=== PATIENT | female | born 1985 | race Caucasian/White ===

== ENCOUNTER 2020-09-09 11:20 | Outpatient (CLI) | payer MEDICAID, SELFPAY ==
--- NOTE | 2020-09-09 11:47 | XRR_ITS ---
PROCEDURE INFORMATION: Exam: XR Lumbosacral Spine, 2 or 3 Views Exam date and time: 09/09/2020 12:05 PM Age: 34 years old Clinical indication: Low back pain TECHNIQUE: Imaging protocol: XR of the lumbosacral spine, 2 or 3 views. COMPARISON: No relevant prior studies available. FINDINGS: Bones/joints: Normal. No acute fracture. Normal alignment. Soft tissues: Metallic surgical clips right upper quadrant corresponding to cholecystectomy. XR/XR lumbar spine 2-3V* [id number] IMPRESSION: 1. No acute findings. 2. Status post cholecystectomy
== END 2020-09-09 11:21 | disposition home or self-care (01) ==
LOC: RAD 11:27
PROVIDERS: PCP Nurse Practitioner Family; Visit Provider Nurse Practitioner Family
DX: M54.5 Low back pain (principal); Z90.49 Acquired absence of other specified parts of digestive tract
CPT/HCPCS: 72100

== ENCOUNTER → 2020-10-18 15:24 | Outpatient (BNVA) | payer MEDICAID, SELFPAY | PROVIDERS: PCP Nurse Practitioner Family; Visit Provider Counselor Professional | DX: F43.23 Adjustment disorder with mixed anxiety and depressed mood (principal); Z63.4 Disappearance and death of family member | CPT/HCPCS: 90832 ==

== ENCOUNTER → 2020-11-01 15:11 | Outpatient (BNVA) | payer MEDICAID, SELFPAY | PROVIDERS: PCP Nurse Practitioner Family; Visit Provider Counselor Professional | DX: F43.23 Adjustment disorder with mixed anxiety and depressed mood (principal); Z63.4 Disappearance and death of family member | CPT/HCPCS: 90832 ==

== ENCOUNTER → 2020-11-15 16:04 | Outpatient (BNVA) | payer MEDICAID, SELFPAY | PROVIDERS: PCP Nurse Practitioner Family; Visit Provider Counselor Professional | DX: F43.23 Adjustment disorder with mixed anxiety and depressed mood (principal); Z63.4 Disappearance and death of family member | CPT/HCPCS: 90832 ==

== ENCOUNTER → 2020-12-03 16:09 | Outpatient (BNVA) | payer MEDICAID, SELFPAY | PROVIDERS: PCP Nurse Practitioner Family; Visit Provider Counselor Professional | DX: F43.23 Adjustment disorder with mixed anxiety and depressed mood (principal); Z63.4 Disappearance and death of family member | CPT/HCPCS: 90832 ==

== ENCOUNTER → 2020-12-17 16:03 | Outpatient (BNVA) | payer MEDICAID, SELFPAY | PROVIDERS: PCP Nurse Practitioner Family; Visit Provider Counselor Professional | DX: F43.23 Adjustment disorder with mixed anxiety and depressed mood (principal); Z63.4 Disappearance and death of family member | CPT/HCPCS: 90832 ==

== ENCOUNTER → 2021-01-01 16:05 | Outpatient (BNVA) | payer MEDICAID, SELFPAY | PROVIDERS: PCP Nurse Practitioner Family; Visit Provider Counselor Professional | DX: F43.23 Adjustment disorder with mixed anxiety and depressed mood (principal); Z63.4 Disappearance and death of family member | CPT/HCPCS: 90832 ==

== ENCOUNTER 2021-01-22 10:01 | Outpatient (CLI) | payer MEDICAID, SELFPAY ==
--- NOTE | 2021-01-22 10:10 | MR_ITS ---
WS: [id number] MRI BRAIN WITH AND WITHOUT CONTRAST HISTORY: HEADACHE, UNSPECIFIED COMPARISON: None available. TECHNIQUE: Multiplanar imaging performed through the brain with MultiHance 19 ml's IV. No acute infarcts are seen. Valenzuela-white matter differentiation is well preserved. No susceptibility artifacts or prior lacunar infarcts. Ventricles and extra-axial spaces are normal. Clivus and pituitary gland are normal. Visualized posterior fossa and brainstem are also normal. Lobulated focus of enhancement measuring 10 mm in the subcortical white matter of the LEFT frontal lo be. I favor this is probably a benign venous angioma. There is some motion artifact therefore I canno t definitely confirm venous angioma on this examination. Due to its slightly atypical appearance foll ow-up will be recommended. Otherwise there are no areas of abnormal enhancement identified. Dural venous sinuses are normal. Paranasal sinuses: Well aerated with no significant disease. Mastoid air cells: Normal. Calvarium and scalp: Normal. MR/MR head wo/w con [id number] IMPRESSION: 1. No acute infarct. 2. LEFT frontal subcortical white matter enhancing lesion measures 10 mm. Favo r this is probably a venous angioma. Due to the motion artifact and slightly at ypical appearance short-term follow-up will be recommended to ensure stability. Recommend follow-up MRI brain with contrast in 3 months. Differential would in clude additional vascular malformation or very early metastatic lesion.
[2021-01-22] MEDS: gadobenate dimeglumine 20 mL vial IV (10:45)
== END 2021-01-22 10:02 | disposition home or self-care (01) ==
PROVIDERS: PCP Nurse Practitioner Family; Visit Provider Nurse Practitioner Family
DX: G43.709 Chronic migraine without aura, not intractable, without status migrainosus (principal); F17.210 Nicotine dependence, cigarettes, uncomplicated
CPT/HCPCS: 70553; 99204; 99205; A9577

== ENCOUNTER → 2021-01-23 14:18 | Outpatient (BNVA) | payer MEDICAID, SELFPAY | PROVIDERS: PCP Nurse Practitioner Family; Visit Provider Counselor Professional | DX: F43.23 Adjustment disorder with mixed anxiety and depressed mood (principal); Z63.4 Disappearance and death of family member | CPT/HCPCS: 90832 ==

== ENCOUNTER → 2021-02-05 09:06 | Outpatient (BNVA) | payer MEDICAID, SELFPAY | PROVIDERS: PCP Nurse Practitioner Family; Visit Provider Counselor Professional | DX: F43.23 Adjustment disorder with mixed anxiety and depressed mood (principal); Z63.4 Disappearance and death of family member | CPT/HCPCS: 90832 ==

== ENCOUNTER → 2021-02-19 09:06 | Outpatient (BNVA) | payer MEDICAID, SELFPAY | PROVIDERS: PCP Nurse Practitioner Family; Visit Provider Counselor Professional | DX: F43.23 Adjustment disorder with mixed anxiety and depressed mood (principal); Z63.4 Disappearance and death of family member | CPT/HCPCS: 90832 ==

== ENCOUNTER → 2021-03-13 16:09 | Outpatient (BNVA) | payer MEDICAID, SELFPAY | PROVIDERS: PCP Nurse Practitioner Family; Visit Provider Counselor Professional | DX: F43.23 Adjustment disorder with mixed anxiety and depressed mood (principal); Z63.4 Disappearance and death of family member | CPT/HCPCS: 90832 ==

== ENCOUNTER → 2021-04-09 16:09 | Outpatient (BNVA) | payer OTHER, MEDICAID, SELFPAY | PROVIDERS: PCP Nurse Practitioner Family; Visit Provider Counselor Professional | DX: F43.23 Adjustment disorder with mixed anxiety and depressed mood (principal); Z63.4 Disappearance and death of family member | CPT/HCPCS: 90832 ==

== ENCOUNTER → 2021-04-23 16:14 | Outpatient (BNVA) | payer OTHER, MEDICAID, SELFPAY | PROVIDERS: PCP Nurse Practitioner Family; Visit Provider Counselor Professional | DX: F43.23 Adjustment disorder with mixed anxiety and depressed mood (principal) | CPT/HCPCS: 90832 ==

== ENCOUNTER → 2021-05-09 16:30 | Outpatient (BNVA) | payer OTHER, MEDICAID, SELFPAY | PROVIDERS: PCP Nurse Practitioner Family; Visit Provider Counselor Professional | DX: F43.23 Adjustment disorder with mixed anxiety and depressed mood (principal); Z63.4 Disappearance and death of family member | CPT/HCPCS: 90832 ==

== ENCOUNTER → 2021-05-12 13:18 | Outpatient (BNVA) | payer MEDICAID, SELFPAY | PROVIDERS: PCP Nurse Practitioner Family; Visit Provider Nurse Practitioner | DX: G43.709 Chronic migraine without aura, not intractable, without status migrainosus (principal); R93.0 Abnormal findings on diagnostic imaging of skull and head, not elsewhere classified; F17.210 Nicotine dependence, cigarettes, uncomplicated | CPT/HCPCS: 99213; 99214 ==

== ENCOUNTER → 2021-05-23 16:00 | Outpatient (BNVA) | payer OTHER, MEDICAID, SELFPAY | PROVIDERS: PCP Nurse Practitioner Family; Visit Provider Counselor Professional | DX: F43.23 Adjustment disorder with mixed anxiety and depressed mood (principal); Z63.4 Disappearance and death of family member | CPT/HCPCS: 90834 ==

== ENCOUNTER → 2021-06-12 16:03 | Outpatient (BNVA) | payer OTHER, MEDICAID, SELFPAY | PROVIDERS: PCP Nurse Practitioner Family; Visit Provider Counselor Professional | DX: F43.23 Adjustment disorder with mixed anxiety and depressed mood (principal); Z63.4 Disappearance and death of family member | CPT/HCPCS: 90832 ==

== ENCOUNTER → 2021-07-04 16:00 | Outpatient (BNVA) | payer OTHER, SELFPAY | PROVIDERS: PCP Nurse Practitioner Family; Visit Provider Counselor Professional | DX: F43.23 Adjustment disorder with mixed anxiety and depressed mood (principal); Z63.4 Disappearance and death of family member | CPT/HCPCS: 90832 ==

== ENCOUNTER 2022-12-14 07:48 | Emergency (ER) | payer MEDICAID, SELFPAY ==
--- NOTE | 2022-12-14 07:52 | W.ED.NAVMDI ---
HPI - Nausea/Vomiting/Diarrhea General: Chief complaint: Nausea/Vomiting/Diarrhea Stated complaint: n/v Time Seen by Provider: 12/14/22 07:49 Source: patient Mode of arrival: ambulatory Limitations: no limitations History of Present Illness: Patient is a 37-year-old female presents to ED today with complaint of nausea, vomiting, diarrhea. Patient states she started feeling nauseous around 6 PM yesterday evening and states later that night she began having multiple episodes of nonbloody emesis. She states diarrhea started this morning and has had approximately 4 episodes of watery nonbloody diarrhea. She is not having any abdominal pain or cramping. She does report diffuse body aches. No fevers. Denies poor/bad food exposures. Denies sick contacts. MD elicited complaint: nausea, vomiting and diarrhea Onset (ago): hour(s) Associated nausea: Yes Associated abdominal pain: No Severity: moderate Exacerbating factors: eating Relieving factors: none Associated symtoms: Reports nausea; Denies chest pain, dizziness, dysuria, fatigue, headache(s) or malaise Treatment prior to arrival: none Review of Systems Const: Reports: body aches; Denies: fever(s), chills, fatigue or malaise ENMT: Denies: throat pain, odynophagia, nasal discharge or nasal congestion Card: Denies: chest pain Resp: Denies: dyspnea GI: Reports: nausea, vomiting and diarrhea; Denies: abdominal pain, hematemesis, hematochezia or melena : Denies: flank pain, difficulty voiding, dysuria, urinary frequency or urinary urgency Musc: Denies: neck pain, back pain, extremity pain or joint pain Skin/Breast: Denies: rash Neuro: Denies: headache(s) or dizziness [facility] ED PFSH: Medical History Abnormal MRI of head Chronic migraine Family History Mother Diabetes Psychiatric illness Father No problems noted. Grandmother Stroke Social History (Updated 12/14/22 @ 08:19 by JAMMIE Amaro) Smoking and tobacco status: current every day smoker cigarettes Packs smoked per day: 1 Years cigarettes smoked: 22 Alcohol intake: current Alcohol intake frequency: holidays/special occasions only Desire information about alcohol rehabilitation?: No Substance/Drug Use: current Substance/Drug use frequency: daily Substance/Drug use type: Marijuana Other substance/drug use details: reports using at night to help with sleep Physical Exam Const: COMMON NORMALS: no acute distress, average body habitus, patient oriented x3, no limitations, healthy appearing, alert and well nourished HENMT: COMMON NORMALS: normocephalic and atraumatic HEAD & SCALP: normal to inspection, normocephalic and atraumatic Eye: COMMON NORMALS: no scleral icterus Neck/C-Spine: COMMON NORMALS: no lymphadenopathy Resp: COMMON NORMALS: normal respiratory effort and clear to auscultation bilaterally AUSCULTATION: clear to auscultation bilaterally Cardio: COMMON NORMALS: regular rhythm RATE: tachycardic RHYTHM: regular rhythm GI: COMMON NORMALS: Normal to inspection, nondistended, normoactive bowel sounds present, Soft to palpation, non-tender, No hepatosplenomegaly present and no masses INSPECTION: Yes normal to inspection AUSCULTATION: Yes normoactive bowel sounds PALPATION: Yes Soft to palpation, No Tenderness to palpation present (GI), No Guarding due to palpation present (GI), No Rigid due to palpation and Yes No hepatosplenomegaly present : COMMON NORMALS: Yes no CVA tenderness BLADDER/KIDNEY EXAM: Yes no CVA tenderness Back/Pelvis: COMMON NORMALS: no CVA tenderness Extremity: COMMON NORMALS: normal to inspection GENERAL: Yes normal exam except as noted Neuro: CIARA COMA SCALE: document GCS findings [place] coma scale eye opening: Spontaneous [place] coma scale verbal response: Orientated Ci[place] coma scale motor response: Obey commands Ciara coma scale total score: 15 COMMON NORMALS: patient oriented x3 SENSORIUM/ORIENTATION: Yes alert Skin: COMMON NORMALS: no rashes or lesions noted GENERAL SKIN EXAM: no rashes or lesions noted Course Vital Signs: Vital signs: Vital Signs Temperature 97.9 F 12/14/22 08:03 Pulse Rate 101 H 12/14/22 08:35 Blood Pressure 108/68 12/14/22 09:02 Pulse Oximetry 96 12/14/22 09:02 Oxygen Delivery Me thod 12/14/22 09:02 MDM - Nausea/Vomiting/Diarrhea Medical Decision Making Patient's symptoms sound consistent with a viral gastroenteritis. Her blood work overall is unremarkable. UA showing dehydration with 3+ ketones. She was given a liter of fluids and Zofran with vast improvement in her nausea. She was able to eat and drink here without difficulty. Patient will be sent home with a prescription for Zofran and directions for rest, recovery, rehydration. Return to ED precautions given. Differential Diagnosis Likely food poisoning, gastroenteritis and dehydration Lab Data 12/14/22 08:40 12/14/22 08:40 Laboratory Results WBC 14.7 10^3/uL (4.0-10.0) H 12/14/22 08:40 RBC 5.27 10^6/uL (4.1-5.3) 12/14/22 08:40 Hgb 15.5 g/dL (11.5-15.3) H 12/14/22 08:40 Hct 47.7 % (37.0-47.0) H 12/14/22 08:40 MCV 90.5 fl (81-99) 12/14/22 08:40 MCH 29.4 pg (28.0-34.0) 12/14/22 08:40 MCHC 32.5 g/dL (30.0-36.0) 12/14/22 08:40 RDW 12.7 % (12.1-15.1) 12/14/22 08:40 Plt Count 369 10^3/cmm (130-400) 12/14/22 08:40 MPV 9.2 fL (7.4-10.4) 12/14/22 08:40 Neut % (Auto) 91.4 % 12/14/22 08:40 Lymph % (Auto) 5.1 % 12/14/22 08:40 [place] % (Auto) 2.9 % 12/14/22 08:40 Eos % (Auto) 0.1 % 12/14/22 08:40 Baso % (Auto) 0.2 % 12/14/22 08:40 Neut # (Auto) 13.42 10^3/uL (1.8-7.7) H 12/14/22 08:40 Lymph # (Auto) 0.8 10^3/uL (0.8-4.8) 12/14/22 08:40 [place] # (Auto) 0.4 10^3/uL (0.2-0.9) 12/14/22 08:40 Eos # (Auto) 0.0 10^3/uL (0.0-0.8) 12/14/22 08:40 Baso # (Auto) 0.0 10^3/uL (0.0-0.1) 12/14/22 08:40 Nucleated RBC % (auto) 0 % 12/14/22 08:40 Nucleated RBCs # 0.0 /100WBC 12/14/22 08:40 Sodium 141 mmol/L (136-145) 12/14/22 08:40 Potassium 4.0 mmol/L (3.5-5.1) 12/14/22 08:40 Chloride 107 mmol/L (98-107) 12/14/22 08:40 Carbon Dioxide 20 mmol/L (22-29) L 12/14/22 08:40 Anion Gap 18.0 (5-19) 12/14/22 08:40 BUN 16 mg/dL (6-20) 12/14/22 08:40 Creatinine 0.8 mg/dL (0.5-0.9) 12/14/22 08:40 GFR Calculation 80.3 mL/min (90-130) L 12/14/22 08:40 Glucose 106 mg/dL (65-115) 12/14/22 08:40 Calculated Osmolality 294 mOsm/kg (285-295) 12/14/22 08:40 Calcium 9.3 mg/dL (8.5-10.5) 12/14/22 08:40 Total Bilirubin 0.6 mg/dL (0.15-1.2) 12/14/22 08:40 AST 24 U/L (0-32) 12/14/22 08:40 ALT 29 U/L (0-33) 12/14/22 08:40 Alkaline Phosphatase 146 U/L (35-105) H 12/14/22 08:40 Total Protein 7.4 g/dL (6.6-8.7) 12/14/22 08:40 Albumin 4.2 g/dL (3.5-5.2) 12/14/22 08:40 Globulin 3.2 g/dL (1.3-4.6) 12/14/22 08:40 Lipase 13 U/L (13-60) 12/14/22 08:40 HCG, Qual Negative (Negative) 12/14/22 08:40 Urine Color Yellow (Yellow) 12/14/22 09:20 Urine Appearance Hazy (CLEAR) A 12/14/22 09:20 Urine pH 5 (5-7) 12/14/22 09:20 Ur Specific [place] 1.025 (1.005-1.030) 12/14/22 09:20 Urine Protein Neg (Negative) 12/14/22 09:20 Urine Glucose (UA) Norm (Normal) 12/14/22 09:20 Urine Ketones 3+ (Negative) H 12/14/22 09:20 Urine Blood Trace (Negative) H 12/14/22 09:20 Urine Nitrate Negative (Negative) 12/14/22 09:20 Urine Bilirubin 1+ (Negative) H 12/14/22 09:20 Urine Urobilinogen Norm mg/dL (Negative) 12/14/22 09:20 Ur Leukocyte Esterase Negative (Negative) 12/14/22 09:20 Urine RBC 5-10 /hpf (0-2) H 12/14/22 09:20 Urine WBC 0-4 /hpf (0-5) H 12/14/22 09:20 Ur Squamous Epith Cells 0-4 /hpf (0-5) H 12/14/22 09:20 Amorphous Sediment Not Reportable 12/14/22 09:20 Urine Bacteria 1+ /hpf (NONE) H 12/14/22 09:20 Urine Mucus 2+ /hpf 12/14/22 09:20 Discharge Plan Discharge Patient Disposition: Home Clinical Impression: Gastroenteritis Condition: Stable Prescriptions: New ondansetron 4 mg tablet,disintegrating 4 mg PO Q8H PRN (Reason: nausea and vomiting) Qty: 14 0RF No Action omeprazole 20 mg capsule,delayed release(DR/EC) 20 mg PO DAILY loratadine 10 mg capsule 10 mg PO DAILY PRN (Reason: Allergic Reaction) Dulera 200-5 mcg/actuation HFA aerosol inhaler 2 puff inhalation BID baclofen 10 mg tablet 10 mg PO DAILY PRN (Reason: Pain) albuterol sulfate 90 mcg/actuation HFA aerosol inhaler 2 puff inhalation Q6H PRN (Reason: Shortness Of Breath) bupropion HCl 150 mg tablet extended release 24 hr 150 mg PO DAILY Discharge Orders: Discharge ED (Routine); Ordered 12/14/22 Ordered By: Jyothi Fermin Referrals: Tierra Gallegos FNP [Referring] - Patient Instructions: Dehydration (DC), Gastroenteritis (DC), Acute Nausea and Vomiting (DC) Stand Alone Forms: Work/School Release 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
[2022-12-14 08:03] VITALS: BP 127/81; PULSE 110; TEMP 36.6; O2SAT 94; BMI 28.1
[2022-12-14 08:35] VITALS: BP 119/84; PULSE 101; O2SAT 95
[2022-12-14] MEDS: sodium chloride 0.9% 1,000 ML 999 ML IV (08:35)
[2022-12-14] MEDS: ondansetron 2 mg/ML SDV 2 mL 4 MG IVP (08:35)
[2022-12-14 08:48] LABS: Basophils % 0.2 %; Eosinophils % 0.1 %; Hematocrit 47.7 % (37.0-47.0); Hemoglobin 15.5 g/dL (11.5-15.3); Lymphocytes # 0.8 10^3/uL (0.8-4.8); Lymphocytes % 5.1 %; Mean Corpuscular HGB Conc 32.5 g/dL (30.0-36.0); Mean Corpuscular Hemoglobin 29.4 pg (28.0-34.0); Mean Corpuscular Volume 90.5 fl (81-99); Mean Platelet Volume 9.2 fL (7.4-10.4); Monocytes # 0.4 10^3/uL (0.2-0.9); Monocytes % 2.9 %; Neutrophils # 13.42 10^3/uL (1.8-7.7); Neutrophils % 91.4 %; Nucleated Red Blood Cells % 0 %; Platelet Count 369 10^3/cmm (130-400); Red Blood Count 5.27 10^6/uL (4.1-5.3); Red Cell Distribution Width 12.7 % (12.1-15.1); White Blood Count 14.7 10^3/uL (4.0-10.0)
[2022-12-14 09:02] VITALS: BP 108/68; O2SAT 96
[2022-12-14 09:05] LABS: Alanine Aminotransferase 29 U/L (0-33); Albumin Level 4.2 g/dL (3.5-5.2); Alkaline Phosphatase 146 U/L (35-105); Aspartate Amino Transferase 24 U/L (0-32); Blood Urea Nitrogen 16 mg/dL (6-20); Calcium 9.3 mg/dL (8.5-10.5); Carbon Dioxide 20 mmol/L (22-29); Chloride 107 mmol/L (98-107); Creatinine Clr Calc Pharmacy 104.7908; Globulin 3.2 g/dL (1.3-4.6); Glomerular Filtration Rate 80.3 mL/min (90-130); Glucose 106 mg/dL (65-115); Lipase 13 U/L (13-60); Osmolality Calculated 294 mOsm/kg (285-295); Sodium 141 mmol/L (136-145); Total Bilirubin 0.6 mg/dL (0.15-1.2); Total Protein 7.4 g/dL (6.6-8.7)
[2022-12-14 09:12] LABS: HCG, Serum Qual Negative (Negative)
[2022-12-14 09:43] LABS: Specific Gravity, Urine 1.025 (1.005-1.030); Urine Appearance Hazy (CLEAR); Urine Color Yellow (Yellow); pH Urine 5 (5-7)
[2022-12-14 09:44] LABS: Add Urine Microscopic? YES; Bacteria Urine 1+ /hpf; Bilirubin Urine 1+ (Negative); Blood Urine Trace (Negative); Glucose Urine UA Norm (Normal); Ketones Urine 3+ (Negative); Leukocyte Esterase Urine Negative (Negative); Mucus Urine 2+ /hpf; Nitrate Urine Negative (Negative); Protein Urine Neg (Negative); Squamous Epithelial Cell Urine 0-4 /hpf (0-5); Urobilinogen Urine Norm (Negative); WBC Urine 0-4 /hpf (0-5)
[2022-12-14 09:45] LABS: Add Urine Culture? No
== END 2022-12-14 09:58 | disposition home or self-care (01) ==
PROVIDERS: Emergency Provider Physician Assistant; PCP Family Medicine
DX: K52.9 Noninfective gastroenteritis and colitis, unspecified (principal); F17.210 Nicotine dependence, cigarettes, uncomplicated
CPT/HCPCS: 80053; 81001; 83690; 84703; 85025; 96361; 96374; 99284; J2405; J7030

== ENCOUNTER 2023-05-10 13:20 | Oncology outpatient (recurring) (ONCR) | payer MEDICAID, SELFPAY ==
[2023-05-10 14:00] LABS: Basophils # 0.1 10^3/uL (0.0-0.1); Basophils % 0.4 %; Eosinophils # 0.3 10^3/uL (0.0-0.8); Eosinophils % 2.5 %; Hematocrit 41.6 % (37.0-47.0); Hemoglobin 13.9 g/dL (11.5-15.3); Lymphocytes # 4.3 10^3/uL (0.8-4.8); Lymphocytes % 33.9 %; Mean Corpuscular HGB Conc 33.4 g/dL (30.0-36.0); Mean Corpuscular Hemoglobin 30.2 pg (28.0-34.0); Mean Corpuscular Volume 90.2 fl (81-99); Mean Platelet Volume 9.1 fL (7.4-10.4); Monocytes # 0.5 10^3/uL (0.2-0.9); Monocytes % 4.1 %; Neutrophils # 7.46 10^3/uL (1.8-7.7); Neutrophils % 58.9 %; Nucleated Red Blood Cells % 0 %; Platelet Count 322 10^3/cmm (130-400); Red Blood Count 4.61 10^6/uL (4.1-5.3); White Blood Count 12.7 10^3/uL (4.0-10.0)
== END 2023-05-20 23:59 | disposition home or self-care (01) ==
PROVIDERS: PCP Family Medicine; Visit Provider Internal Medicine Medical Oncology
DX: D72.829 Elevated white blood cell count, unspecified (principal)
CPT/HCPCS: 36415; 85025

== ENCOUNTER → 2023-11-27 17:02 | Outpatient (BNVA) | payer OTHER, SELFPAY | PROVIDERS: PCP Family Medicine; Visit Provider Emergency Medicine | DX: S69.90XA Unspecified injury of unspecified wrist, hand and finger(s), initial encounter (principal); S67.196A Crushing injury of right little finger, initial encounter; W23.0XXA Caught, crushed, jammed, or pinched between moving objects, initial encounter | CPT/HCPCS: 73130 ==

== ENCOUNTER 2024-04-24 19:47 | Emergency (ER) | payer MEDICAID, SELFPAY ==
[2024-04-24 20:02] VITALS: BP 108/71; PULSE 69; RESP 16; TEMP 36.9; O2SAT 98
--- NOTE | 2024-04-24 20:25 | W.ED.BACK ---
HPI - Back Pain/Injury General: Chief Complaint: Back Pain/Injury Stated Complaint: left side hip pain Time Seen by Provider: 04/24/24 20:09 Source: patient Mode of arrival: ambulatory Limitations: no limitations History of Present Illness: Patient is a 38-year-old female who presents to ED today for evaluation of left lower back pain that began yesterday after she got up from a chair. She states she has a longstanding history of sciatica, often times bilaterally, but states this pain is slightly different. She states her sciatica pain normally goes all the way down to my toes . She states her pain today is located to the left side of her back and radiates more so into the left hip. She is ambulatory here without difficulty or assistance. She is not having any saddle anesthesia. No issues with bowel or bladder incontinence/retention. MD elicited complaint: back pain Pertinent past history: prior back pain Onset (ago): day(s) (yesterday) Timing: constant Severity: moderate Similar Symptoms Previously: Yes Location: left lower back Radiation: left upper leg Exacerbating factors: movement Relieving factors: none Associated symptoms: Deny abdominal pain, chills, change in bowel habits, difficulty walking, dysuria, fatigue, fever(s), urinary urgency or vomiting Treatments prior to arrival: cold therapy, heat therapy and other (prescription muscle relaxers) Work related injury: No Review of Systems Const: Denies: fever(s), chills, body aches, fatigue or malaise Card: Denies: chest pain Resp: Denies: dyspnea GI: Denies: abdominal pain, vomiting or change in bowel habits : Denies: flank pain, difficulty voiding, dysuria, urinary frequency, urinary urgency, urinary hesitancy or pelvic pain Musc: Reports: back pain and joint pain; Denies: neck pain, extremity pain, extremity swelling, joint swelling, joint redness, joint warmth, joint stiffness, limited range of motion or muscle cramps Skin/Breast: Denies: rash Neuro: Denies: headache(s), numbness in extremities, weakness in extremities, sensory changes or difficulty walking [facility] ED PFSH: Medical History Abnormal MRI of head Chronic migraine Family History Mother Diabetes Psychiatric illness Father No problems noted. Grandmother Stroke Social History Smoking and tobacco/nicotine status: current every day tobacco/nicotine user cigarettes Packs smoked per day: 1 Years cigarettes smoked: 22 Alcohol intake: current Alcohol intake frequency: holidays/special occasions only Substance/Drug Use: current Substance/Drug use frequency: daily Other substance/drug use details: reports using at night to help with sleep Physical Exam Const: COMMON NORMALS: no acute distress, average body habitus, patient oriented x3, no limitations, healthy appearing, alert and well nourished GI: COMMON NORMALS: Normal to inspection, nondistended, normoactive bowel sounds present, Soft to palpation, non-tender and no masses PALPATION: Yes Soft to palpation : COMMON NORMALS: Yes no CVA tenderness BLADDER/KIDNEY EXAM: Yes no CVA tenderness Back/Pelvis: COMMON NORMALS: no CVA tenderness, thoracic and lumbar spine normal to inspection, no thoracic nor lumbar tenderness, thoraco-lumbar ROM normal and straight leg raise negative bilaterally LUMBAR SPINE/LOWER BACK: Yes lumbar ROM normal, No lumbar spinal tenderness, No paraspinal muscle tenderness, No paraspinal muscle spasm, No mass present and Yes straight leg raise negative bilaterally PELVIS: Yes buttocks normal and No sciatic notch tenderness SACROILIAC JOINTS: Yes SI joint(s) abnormal SI joint details: tender to palpation SACRUM: no tenderness COCCYX: no tenderness Extremity: COMMON NORMALS: normal to inspection, full ROM, capillary refill normal, no joint enlargement, no clubbing, cyanosis or edema, no calf tenderness and no pedal edema GENERAL: Yes normal exam except as noted Neuro: COMMON NORMALS: patient oriented x3 SENSORIUM/ORIENTATION: Yes alert Skin: COMMON NORMALS: no rashes or lesions noted GENERAL SKIN EXAM: no rashes or lesions noted Course Vital Signs: Vital signs: Vital Signs Temperature 98.5 F 04/24/24 20:02 Pulse Rate 69 04/24/24 20:02 Respiratory Rate 16 04/24/24 20:02 Blood Pressure 108/71 04/24/24 20:02 Pulse Oximetry 98 04/24/24 20:02 Oxygen Delivery Me thod Room Air 04/24/24 20:02 MDM - Back Pain/Injury Medical Decision Making Patient arrives in no acute distress. No red flags on history or physical examination. She was treated with IM Toradol and Dexamethasone will be placed on anti-inflammatories and steroids at home. She states she has muscle relaxers at home she can continue using. Recommend follow-up with primary care in 1 to 2 weeks if symptoms not seem to be improving. Return ED precautions given. Differential Diagnosis Likely lumbar radiculopathy, sciatica and strain of lumbar region Medical Records I reviewed the patient's medical records. No radiology studies performed this visit Discharge Plan Discharge Patient Disposition: Home Clinical Impression: Sacroiliitis Condition: Stable Prescriptions: New ibuprofen 800 mg tablet 800 mg PO Q8H PRN (Reason: pain) Qty: 20 0RF Medrol (Kelvin) 4 mg tablets,dose pack See Rx Instructions .ROUTE .COMPLEX Qty: 21 0RF Rx Instructions: orally per package directions No Action omeprazole 20 mg capsule,delayed release(DR/EC) 20 mg PO DAILY Dulera 200-5 mcg/actuation HFA aerosol inhaler 2 puff inhalation BID baclofen 10 mg tablet 10 mg PO DAILY PRN (Reason: Pain) albuterol sulfate 90 mcg/actuation HFA aerosol inhaler 2 puff inhalation Q6H PRN (Reason: Shortness Of Breath) 5-hydroxytryptophan (5-HTP) [5-HTP] 100 mg capsule 100 mg PO BID cyclobenzaprine 10 mg tablet 10 mg PO TID bupropion HCl 150 mg tablet extended release 24 hr 150 mg PO DAILY ondansetron 4 mg tablet,disintegrating 4 mg PO Q8H PRN (Reason: nausea and vomiting) Qty: 14 0RF Discharge Orders: Discharge ED (Routine); Ordered 04/24/24 Ordered By: Jyothi Fermin Referrals: Adilia Hurst DO [Primary Care Provider] - Patient Instructions: Sacroiliitis (ED) Stand Alone Forms: Work/School Release Coding Level 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
[2024-04-24] MEDS: ketorolac 60 mg/2 mL INJ IM (20:48)
[2024-04-24] MEDS: dexamethasone 10 mg/mL INJ 8 MG IM (20:48)
== END 2024-04-24 20:52 | disposition home or self-care (01) ==
PROVIDERS: Emergency Provider Physician Assistant; PCP Family Medicine
DX: M46.1 Sacroiliitis, not elsewhere classified (principal); F17.210 Nicotine dependence, cigarettes, uncomplicated
CPT/HCPCS: 96372; 99284; J1100; J1885

== ENCOUNTER → 2024-08-21 10:26 | Outpatient (BNVA) | payer MEDICAID, SELFPAY | PROVIDERS: PCP Family Medicine | DX: J02.9 Acute pharyngitis, unspecified (principal); R50.9 Fever, unspecified; J01.00 Acute maxillary sinusitis, unspecified; J40 Bronchitis, not specified as acute or chronic; R05.9 Cough, unspecified; R05.1 Acute cough | CPT/HCPCS: 87071; 87400; 87426; 87880 ==

== ENCOUNTER 2025-02-08 13:25 | Outpatient (CLI) | payer MEDICAID, SELFPAY ==
--- NOTE | 2025-02-08 13:33 | XR_ITS ---
WS: [id number] Chest 2 views, 02/08/2025 Clinical Data: HYPERHIDROSIS HOT FLASHES Comparison: None. Findings: No nodules, masses or effusions are seen. The heart is normal. The pulmonary vascularity is not increased. No pneumonia or pneumothorax is seen. The diaphragms are flattened. XR/XR chest 2V* [id number] Impression: Hyperinflation.
== END 2025-02-08 13:26 | disposition home or self-care (01) ==
LOC: RAD 13:26
PROVIDERS: PCP Family Medicine; Visit Provider Nurse Practitioner Family
DX: R61 Generalized hyperhidrosis (principal); N95.1 Menopausal and female climacteric states; R91.8 Other nonspecific abnormal finding of lung field
CPT/HCPCS: 71046